=== PATIENT | female | born 1930 | race Caucasian/White ===

== ENCOUNTER 2016-06-27 13:02 | Observation (INO) | payer BC ==
--- NOTE | ~2016-06-27 | PRECARD ---
[facility] [address] [facility] [place]. [address] NAME: RUTHIE CARLTON : 34 STATUS : ADM IN [facility]#: [id number] AGE: 86 ADM/REG DATE : 06/27/16 MR#: [id number] REPORT SERV DATE: 06/27/16 DICTATED BY: MIMI TORRES DATE: 06/27/16 REPORT STATUS : Draft TRANSCRIBED BY: LUZ DATE: 06/27/16 DATE OF ADMISSION: 06/27/2016 CHIEF COMPLAINT: Near syncope. REASON FOR CONSULTATION: Bradycardia. SOURCE: The patient and her chart. HISTORY OF PRESENT ILLNESS: Ms. Carlton is a very pleasant 86-year-old white woman with history of remote atrial fibrillation, status post cardioversion 5 or 6 years ago. She was in her usual state of health until the day before yesterday when she had a weak spell in the morning with near syncope. It lasted about 2 to 3 hours. She noticed a slow pulse. Her legs felt rubbery. She was lightheaded. She did not lose consciousness. No swelling. No palpitations. No shortness of breath. No chest pain. She saw Dr. Arias this morning in clinic who did an EKG and found evidence of bradycardia and heart block and she was taken by ambulance to the ER where she was admitted for further care. She has felt okay since her episode 2 days ago. REVIEW OF SYSTEMS: All other systems are negative. ALLERGIES: COUMADIN CAUSES NAUSEA AND SULFA CAUSES NAUSEA. MEDICATIONS: As per her home list included carvedilol 3.125 mg p.o. b.i.d.; Fosamax; vitamin D3; Aleve; Vitafol; Zantac; Maxzide; and PreserVision. CARDIAC RISK FACTORS: Hypertension. FAMILY HISTORY: Denies diabetes, cholesterol, or tobacco. SOCIAL HISTORY: The patient lives in [place]. She is . She has 3 children, alive and well. She is retired. FAMILY HISTORY: Father of myocardial infarction at age 60. PAST MEDICAL HISTORY: Significant for atrial fibrillation status post shock 5 or 6 years ago. No other heart problems. Status post tonsillectomy. Status post appendectomy. Status post gallbladder surgery. Status post hysterectomy. Status post left hip surgery. Jaw surgery. Cataract surgery. She denies any thyroid problems. PHYSICAL EXAMINATION: GENERAL: She is a well-developed, well-nourished, elderly white woman, in no acute distress. VITAL SIGNS: Blood pressure 128/81, pulse 82, and temperature 98 degrees Fahrenheit. Weight is 67 kilos. [facility]&P [address] [address] NAME: RUTHIE CARLTON : 34 STATUS : ADM IN [facility]#: [id number] AGE: 86 ADM/REG DATE : 06/27/16 MR#: [id number] REPORT SERV DATE: 06/27/16 DICTATED BY: MIMI TORRES DATE: 06/27/16 REPORT STATUS : Draft TRANSCRIBED BY: LUZ DATE: 06/27/16 HEENT: Sclerae anicteric. Lips without cyanosis. NECK: Carotids 2+ and symmetrical. No bruits. No JVD. No thyromegaly. LUNGS: Clear to auscultation. No use of accessory muscles. HEART: Regular rate and rhythm without murmur, gallop, or rub. ABDOMEN: Positive bowel sounds. Soft, nontender. EXTREMITIES: Pulses 2+ and symmetrical. No cyanosis, clubbing, or edema. BACK: No CVA tenderness. MUSCULOSKELETAL: Good tone. NEUROLOGIC: Alert and oriented x3. DATA: EKG reveals sinus rhythm with first-degree AV block, VA interval of 316 milliseconds, possible left atrial enlargement, inferior posterior infarct of undetermined age. The EKG strips from Dr. Arias reveal evidence of bradycardia with second degree AV block. LABORATORY EXAMINATION: Chest x-ray, no acute cardiopulmonary disease. TSH is normal at 1.5. The sodium is 144, potassium 4.0, chloride 108, CO2 of 29, glucose 89, BUN 26, creatinine 0.94, troponin less than 0.02. White count 5.9, hemoglobin of 13.4, hematocrit 40.3, and platelets 198,000. INR 1.1, PTT of 26.2. Urinalysis specific gravity of 1.012, pH 8.0, moderate leukocyte esterase, 2 red cells, and 8 white cells. IMPRESSION: 1. Near syncope 06/25/2016. 2. Bradycardia with second-degree AV block on EKG from Dr. Arias's office today. 3. First degree AV block on EKG now. 4. Low-dose Coreg use. 5. Hypertension. 6. History of atrial fibrillation, status post cardioversion 5 or 6 years ago. 7. Normal TSH. RECOMMENDATIONS: 1. Observation on telemetry. 2. Stop Coreg. 3. Check echocardiogram. 4. EP consult in a.m. Consider permanent pacemaker placement. N.p.o. after midnight. Discontinue Lovenox. RICHARD/LUZ Mimi Torres M.D. / [id number] CC: Mimi Torres M.D. [facility] [address] [address] NAME: RUTHIE CARLTON : 34 STATUS : ADM IN [facility]#: [id number] AGE: 86 ADM/REG DATE : 06/27/16 MR#: [id number] REPORT SERV DATE: 06/27/16 DICTATED BY: MIMI TORRES DATE: 06/27/16 REPORT STATUS : Draft TRANSCRIBED BY: LUZ DATE: 06/27/16 Mateo Arias M.D.
--- NOTE | ~2016-06-27 | CN ---
Consultation Report [facility] [address] [place]. [address] NAME: ARLET CARLTON : 34 STATUS : ADM IN PAT#: [id number] AGE: 86 ADM/REG DATE : 06/27/16 MR#: [id number] REPORT SERV DATE: 06/28/16 DICTATED BY: KAMARI SIDDIQI DATE: 06/28/16 REPORT STATUS : Draft TRANSCRIBED BY: MODJudy DATE: 06/28/16 CARDIAC ELECTROPHYSIOLOGY CONSULTATION DATE OF CONSULTATION: 06/28/2016 REFERRING TOOLMAKER GRADE THREE: Lalo Torres M.D. INDICATIONS: AV block presyncope, consider pacemaker. HISTORY OF PRESENT ILLNESS: Ms. Arlet Carlton is a very pleasant 86-year-old female, who was getting ready for jehovah's witness Sunday. She had a significant presyncopal event. She felt very weak, lightheaded, and dizzy. She did not pass out or collapse. This lasted for several minutes, but possibly approaching an hour. She eventually felt better and decided to present to jehovah's witness. Reports it was an excellent sermon. She notified Dr. Arias, her primary provider the next morning, who brought her into the office and found her to have second-degree AV block, and the patient was then transferred to the emergency room. She was on low-dose Coreg 3.125 mg p.o. b.i.d. This was discontinued. She has continued to have some episodes of second-degree AV block with AV Wenckebach. This has occurred in the daytime. Electrophysiology is consulted to consider pacing support. The patient is currently comfortable, laying flat in bed without chest pain, shortness of breath, or dizziness. No orthopnea, PND, or lower extremity edema. PAST MEDICAL HISTORY: Hypertension. ALLERGIES: WARFARIN, WHICH CAUSES NAUSEA AND SULFA CAUSES NAUSEA. MEDICATIONS: Fosamax, Coreg which has been discontinued, naproxen, vitamin D, vitamins, Zantac, Maxzide, and PreserVision. SOCIAL HISTORY: , three children, retired, no smoking. FAMILY HISTORY: Reviewed and noncontributory. REVIEW OF SYSTEMS: As per the HPI. Otherwise, all review of systems negative. PHYSICAL EXAMINATION: VITAL SIGNS: Blood pressure of 106/60, pulse between 65 and 90, respiratory rate is 18. GENERAL: Appears stated age, no distress. EYES: Sclerae anicteric, no arcus senilis. MOUTH: Oral mucosa moist, lips acyanotic. NECK: Jugular venous pressure normal, no carotid bruits. LUNGS: Clear to auscultation bilaterally, normal inspiratory effort. Consultation Report [facility] [id number] [place]. [address] NAME: ARLET CARLTON : 34 STATUS : ADM IN PAT#: [id number] AGE: 86 ADM/REG DATE : 06/27/16 MR#: [id number] REPORT SERV DATE: 06/28/16 DICTATED BY: KAMARI SIDDIQI DATE: 06/28/16 REPORT STATUS : Draft TRANSCRIBED BY: MODL DATE: 06/28/16 CARDIAC: Regular rate and rhythm, no murmurs, gallops or rubs. ABDOMEN: Soft, nondistended, nontender. EXTREMITIES: No edema. SKIN: Warm and dry. NEURO/PSYCH: Alert and oriented, nonfocal, mood appropriate. LABORATORY AND DIAGNOSTIC STUDIES: Electrocardiogram, sinus rhythm with a marked first- degree AV delay with a DC interval of almost 400 milliseconds and a right bundle-branch block conduction pattern. Telemetry demonstrates sinus rhythm with second-degree AV block. It appears to be Mobitz I. Data: Sodium 144, potassium 4.0, creatinine 0.9. Hemoglobin 13. Troponin negative. TSH 1.5. Chest x-ray is reported by the emergency room as negative. IMPRESSION: Symptomatic second-degree atrioventricular block. PLAN: For implantation of a dual chamber pacemaker. I have discussed with the patient the rationale, logistics, and risks. Risks include, but not limited to, bleeding, infection, vascular complications, failure to place lead, lead dislodgement, pneumothorax. All questions were answered and the patient wished to proceed. ALVARO/LUZ Kamari Siddiqi M.D. / [id number] CC: Estephania Malone M.D.
[2016-06-27 12:25] LABS: BASOPHILS 0.2 %; BASOPHILS ABSOLUTE 0.01 10/3/uL (0.0-0.16); EOSINOPHILS 4.6 %; EOSINOPHILS ABSOLUTE 0.27 10/3/uL (0.0-0.53); IMMATURE GRANULOCYTES 0.2 %; IMMATURE GRANULOCYTES ABSOLUTE 0.01 10/3/uL (0.0-0.11); LYMPHOCYTES 21.1 %; LYMPHOCYTES ABSOLUTE 1.25 10/3/uL (0.67-4.30); MEAN CORPUS HGB CONC 33.3 g/dL (32.0-36.0); MEAN CORPUSCULAR HEMOGLOB 30.7 pg (26.0-34.0); MEAN PLATELET VOLUME 9.4 fL (9.2-13.0); MONOCYTES ABSOLUTE 0.71 10/3/uL (0.21-1.20); NEUTROPHILS 61.9 %; NEUTROPHILS ABSOLUTE 3.67 10/3/uL (2.02-8.40); PLATELET COUNT 198 10/3/uL (150-400); RBC DISTRIBUTION WIDTH 13.4 % (12.0-16.0); WHITE BLOOD CELLS 5.9 10/3/uL (4.5-10.5)
[2016-06-27 12:26] LABS: ER CBC TAT 0 Hrs 06 MinsNP; HEMATOCRIT 40.3 % (36.0-48.0); HEMOGLOBIN 13.4 g/dL (12.0-16.0); MANUAL DIFF NO %; MEAN CORPUSCULAR VOLUME 92.2 fL (80-100); RED CELL COUNT 4.37 10/6/uL (4.0-5.6)
[2016-06-27 12:34] LABS: ASCORBIC ACID (UR NOT ORDER) 20 (NEG); BILIRUBIN, URINE NEGATIVE (NEG); ER URINALYSIS TAT 0 Hrs 15 Mins; KETONE, URINE NEGATIVE (NEG); LEUKOCYTE ESTERASE(NOT OR MOD (NEG); NITRITE (URINE) NEG (NEG); WBC (NOT ORDERED) (RFLEX) 8 (0-5)
[2016-06-27 12:34] LABS: INTERNATIONAL NORMAL RATI 1.1 UNITS (-); PROTIME (NOT ORD) 13.6 SEC (12.0-14.5)
[2016-06-27 12:35] LABS: PARTIAL THROMBO TIME 26.2 SEC (22.5-37.2)
[2016-06-27 12:45] LABS: BUN (BLOOD UREA NITROGEN) 26 MG/DL (6-23); CHEST PAIN PROFILE TAT 0 Hrs 26 Mins; CHLORIDE, SERUM 108 MMOL/L (96-112); CO2 (CARBON DIOXIDE) 29 MMOL/L (24-34); CREATININE 0.94 MG/DL (0.55-1.02); GFR AFRICAN AMERICAN 65 ML/MIN (>=60); GFR NON AFRICAN AMERICAN 56 ML/MIN (>=60); GLUCOSE, SERUM 89 MG/DL (60-99); SODIUM, SERUM 144 MMOL/L (135-148); TROPONIN I <0.02 NG/ML (<0.05)
[2016-06-27] MEDS ORDERED: COREG3 PO (14:50)
[2016-06-27] MEDS ORDERED: FOSAMAX70 MG PO (14:51)
[2016-06-27] MEDS ORDERED: MAX25 PO (14:51)
[2016-06-27] MEDS ORDERED: ALEVE220 MG PO (14:52)
[2016-06-27] MEDS ORDERED: ZANTAC 75 PO (14:52)
[2016-06-27] MEDS ORDERED: VITAMIN D1000 UNI1 PO (14:53)
[2016-06-27] MEDS ORDERED: PRESERVISION A1 EACH PO (14:53)
[2016-06-27] MEDS ORDERED: [UNRECOGNIZED DRUG - CODE] PO (14:54)
[2016-06-29] MEDS ORDERED: AMOXIL500C PO (08:25)
[2016-06-29] MEDS ORDERED: ULTRAM50 PO (08:26)
== END 2016-06-29 11:07 | disposition home or self-care (01) ==
LOC: ER 13:02 → 5NO 16:04
PROVIDERS: Emergency Medicine
PROC: 0JH606Z Insertion of Pacemaker, Dual Chamber into Chest Subcutaneous Tissue and Fascia, Open Approach (ICD-10-PCS; principal; 2016-06-27)
PROC: 02H63JZ Insertion of Pacemaker Lead into Right Atrium, Percutaneous Approach (ICD-10-PCS; 2016-06-27)
PROC: 02HK3JZ Insertion of Pacemaker Lead into Right Ventricle, Percutaneous Approach (ICD-10-PCS; 2016-06-27)
DX: I44.2 Atrioventricular block, complete (principal); I10 Essential (primary) hypertension; I48.91 Unspecified atrial fibrillation; Z88.2 Allergy status to sulfonamides; Z88.8 Allergy status to other drugs, medicaments and biological substances; Z79.52 Long term (current) use of systemic steroids; Z79.899 Other long term (current) drug therapy; Z96.642 Presence of left artificial hip joint; Z98.49 Cataract extraction status, unspecified eye; Z98.890 Other specified postprocedural states
CPT/HCPCS: 33208; 71010; 80048; 81001; 82962; 83735; 84443; 84484; 85025; 85610; 85730; 87086; 93005; 99285; A9270-GY; C1785; C1892; C1898; G0378; J0690